=== PATIENT | male | born 1955 | race Caucasian/White ===

== ENCOUNTER 2016-12-03 07:49 | Day surgery (SDC) | payer OTHER ==
--- NOTE | 2016-12-02 15:06 | HISTORY AND PHYSICAL E ---
History and Physical NAME: DOT SARMIENTO : 1955 AGE: 61Y ADMITTED: 12/03/2016 ROOM: HISTORY: Admit for colonoscopy. Patient did have colonoscopy in 2004 with sessile polyp resected, sigmoid polyp resected. Colonoscopy in 2007 showed rectosigmoid polyp. Colonoscopy in 2012 showed polyps. PHYSICAL EXAMINATION: VITAL SIGNS: Blood pressure is 100/70, pulse 80, respirations 20, temperature is 98. HEAD, EYES, EARS, NOSE, THROAT: Normal. ABDOMEN: Soft. NEUROLOGIC: Exam negative. Patient does have a history of polyps. At this time, patient admitted regarding colonoscopy. In 2015, did have a benign looking polyp ascending colon, benign looking ascending colon, and the ascending colon with tubular adenoma ascending colon. REVIEW OF SYSTEMS: CARDIAC: High cholesterol. GASTROINTESTINAL: Polyps. ONCOLOGY/HEMATOLOGY: Skin lesions. FAMILY HISTORY: His father had congestive heart failure. Mom is alive. MEDICATIONS: 1. Zocor. 2. Vitamins. 3. Glucosamine. PLAN: Colon exam. Admit 12/03/2016. DICTATING PHYSICIAN: FLO PEACE M.D. [id number] [id number] PHY#: [id number] ID: [id number] JOB#: [id number] ACCT: [id number] cc:FLO PEACE M.D. >
[~2016-12-03 07:49] MED LIST: EPINEPHRINE INJ 1 MG/10 ML DISP.SYRIN ONE; FENTANYL CITRATE INJ/PF 100 MCG/2 ML AMPUL ONE; FLUMAZENIL INJ 0.5 MG/5 ML VIAL IV ONE; GLUCAGON,HUMAN RECOMB 1 MG INJ ONE; GLYCOPYRROLATE INJ 0.4 MG/2 ML VIAL ONE; LIDOCAINE 2% JELLY 30 ML TUBE ONE; NALOXONE HCL INJ/PF 0.4 MG/1 ML SDV ONE; ONDANSETRON HCL INJ/PF 4 MG/2 ML SDV ONE
[2016-12-03] MEDS: MIDAZOLAM 2 MG/2 ML INJ ONE ×2 (07:59→08:05)
[2016-12-03 09:45] VITALS: BP 97/70
--- NOTE | 2016-12-03 09:47 | OPERATIVE REPORT E ---
Operative Report NAME: DOT SARMIENTO : 1955 AGE: 61Y DATE OF SURGERY: 12/03/2016 ROOM: PREOPERATIVE DIAGNOSES: 1. Colon screening. 2. History of polyps. POSTOPERATIVE DIAGNOSES: 1. Diminutive polyp 1 mm cecum, biopsy, removed. 2. A 2 mm polyp proximal transverse colon, biopsy, removed. PROCEDURE: Colonoscopy. SURGEON: FLO PEACE M.D. ANESTHESIA: Versed 3 and fentanyl 100. TISSUE REMOVED OR ALTERED: Biopsy polyp in cecum. Biopsy polyp in proximal transverse colon. Prep was good but not optimal. Moderate amount of formed stools in the cecum. PROCEDURE: Rectal exam essentially mild external hemorrhoids. No bleeding. Rectum normal. Sigmoid descending colon normal. Moderate amount of stool. Transverse colon shows 2 mm polyp in proximal transverse. Biopsy obtained. Ascending normal. Cecum, 1 mm polyp. Orifice of the appendix visualized. Scope withdrawn from cecum, ascending, transverse, descending, sigmoid, all the way to the rectum. CONCLUSION: Small polyps proximal colon, 1 mm cecum and 2 mm transverse colon. PLAN: Soft low residue. Hold aspirin and nonsteroidal for 3 days. Awaiting biopsy. Consider followup colonoscopy after 2 years or 3 years. DICTATING PHYSICIAN: FLO PEACE M.D. [id number] [facility]#: [id number] ID: [id number] JOB#: [id number] ACCT: [id number] cc:[facility], FLO PEACE M.D. >
--- NOTE | 2016-12-03 18:55 | DISCHARGE SUMMARY E ---
Discharge Summary NAME: DOT SARMIENTO : 1955 AGE: 61Y ADMITTED: 12/03/2016 DISCHARGED: 12/03/2016 HOSPITAL COURSE: The patient is a 61-year-old male who presented with a remote history of polyps, multiple previous colonoscopies, now he has blood in the stool, time for colon screening. Today's colonoscopy shows diminutive polyps in the proximal colon, 1 mm cecum, 2 mm proximal transverse colon. DISCHARGE PLAN: Soft diet. Awaiting biopsy. Consider followup colonoscopy 2 years. DICTATING PHYSICIAN: FLO PEACE M.D. [id number] PHY#: [id number] ID: [id number] JOB#: [id number] ACCT: [id number] cc:[facility], FLO PEACE M.D. >
== END 2016-12-03 09:20 | disposition home or self-care (01) ==
LOC: END 07:49
PROVIDERS: ATTEND Specialist
PROC: 0DBH8ZX Excision of Cecum, Via Natural or Artificial Opening Endoscopic, Diagnostic (ICD-10-PCS; 2016-12-03)
PROC: 0DBL8ZX Excision of Transverse Colon, Via Natural or Artificial Opening Endoscopic, Diagnostic (ICD-10-PCS; principal; 2016-12-03 08:00)
DX: D12.0 Benign neoplasm of cecum (principal); K92.1 Melena; D12.3 Benign neoplasm of transverse colon; E78.00 Pure hypercholesterolemia, unspecified; K64.4 Residual hemorrhoidal skin tags; Z79.899 Other long term (current) drug therapy
CPT/HCPCS: 45380; 88305 ×2; J2250; J3010; J1610; J2405; J0171; J2310; J3490